=== PATIENT | female | born 1995 | race Two or more races ===

== ENCOUNTER 2024-12-07 10:56 | Outpatient (AMB) | payer MEDICAID, SELFPAY ==
[2024-12-07 11:20] VITALS: BP 125/75; PULSE 83; RESP 17; TEMP 36.6; O2SAT 98; BMI 23.6
--- NOTE | 2024-12-07 11:20 | OBCLNT_ITS ---
Vital Signs 12/07/24 11:20 Height 1.55 m Height Method Measured Weight 56.699 kg Weight Measurement Method Standing Scale BMI 23.6 BP 125/75 Blood Pressure Source Automatic Cuff Blood Pressure Location Right Upper Arm Position Sitting Respiration 17 Pulse 83 Pulse Source Monitor Temp 97.8 F Temp Source Temporal Artery Scan Pulse Oximetry (%) 98 Oxygen Delivery Method Room Air Allergies/Home Meds Allergies & Medications Allergies No Known Allergies Allergy (Verified 12/07/24 11:21) Medication Reconciliation vit,calcium 27-ferrous fum 60 mg iron-folic acid 1 mg tablet (Trinatal Rx 1) 1 tab PO QDAY #60 tabs 10/12/20 [Rx Confirmed 12/07/24] Intake Visit Data Collection New Patient or Established: New Patient not seen in past 3 years at [facility] (considered New) Reason for Visit:: OBI Consent obtained for Telemed Visit: No Seen by Clinical Staff ONLY (RN/MA): No Automatic Machine Attendant Required: No Do You Feel Safe at Home: Yes Authorities Contacted: N/A PCP or OBGYN visit in last 3 months: No Hx Now: Yes Are you currently on any form of Control: No Last menstrual period: 09/13/24 Pain Present Currently: No Pain Scale Used: Pineda-Sandoval/Numerical Pain scale:: 0 Smoking Status Smoking Status: Never smoker Questionnaires Covid-19 Vaccine Questionnaire Has patient been vacinated for Covid-19 Have you been vacinated for Covid-19: No PHQ-9 PHQ-2 Over the last 2 weeks, how often have you been bothered by any of the following problems? 1. Little interest or pleasure in doing things: not at all 2. Feeling down, depressed, or hopeless: not at all Total score: 0 PHQ-9 3. Trouble falling or staying asleep, or sleeping too much: Not at all 4. Feeling tired or having little energy: Not at all 5. Poor appetite or overeating: Not at all 6. Feeling bad about yourself - or that you are a failure or have let yourself or your family down: Not at all 7. Trouble concentrating on things, such as reading the newspaper or watching t elevision: Not at all 8. Moving or speaking so slowly that other people could have noticed? - Or the opposite - being so fidgety or restless that you have been moving around a lot more than usual: not at all 9. Thoughts that you would be better off or of hurting yourself in some way: Not at all Total score: 0 If you checked off any problems, how difficult have these problems made it for you to do your work, take care of things at home, or get along with other people?: not difficult at all Source: Developed by Drs. Álvaro Law, Soraida Llanes, Ezio Coughlin and colleagues, with an educational ashli from [employer]. Social History Living Situation History Lives With: Family Housing: House Tobacco History Smoking Status: Never smoker Alcohol History Alcohol Intake Frequency: holidays/special occasions only Domestic Abuse History Do You Feel Safe at Home: Yes History of Present Illness HPI Narrative Patient is a at 9 weeks and 4 days gestation by ultrasound, presenting for initial care. She reports her last menstrual period was on September 14, 2019, but mentions a 2-day period in early September that she initially didn't c onsider a real period. Her estimated due date is July 08, 2025. She states she is feeling good overall but experiences morning sickness that passes quickly. She is able to keep food down despite the nausea. The patient expresses concern about a family history of scoliosis, specifically mentioning her older sister's diagnosis. She is interested in screening for this condition in her baby. 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 Medical History Past Medical History: No Hx Neurological Disorders, No Hx Breast Cancer, Yes Hx Cardiac Disorders (HTN PREV PREG), No Hx Cancer, Yes Hx Blood Disorders, Yes Hx Anemia, No Hx Gastrointestinal Disorders, No Hx Renal Disease, No Hx Diabetes Mellitus Type 1 and No Hx Diabetes Mellitus Type 2 OB Initial Visit OB Flowsheet OB Flowsheet Initial Weight: Not Recorded Date -?-?-?-?-?-?-?-?-?-?-?-?- EGA Weight BP Alb Glu CTX Pres Fundal ht FHR Mov Dilation Station Effacement Hx Notes Visit Note 12/07/24 -?-?-?-?-?-?-?-?-?-?-?-?- 9w 4d 56.699 kg 125/75 at 9 weeks and 4 days gestation by ultrasound, presenting for initial care. She states she is feeling good overall b ut experiences morning sickness that passes quickly. She is able to keep food down despite the nausea. - Order comprehensive labs including genetic testing for Down syndrome screening - Schedule detailed ultrasound at [facility] for placenta screening and 45-point anatomy survey at 20 weeks gestation - Continue vitamins - Plan for repeat at term due to history of 3 prior C-sections - [facility] Menstrual History Menstrual reliability: definite Flow: normal Menstrual regularity: regular Monthly: Yes Age at menarche: 17 On control pills at conception: No Date of positive home test: 10/09/24 OB History : 4 Para: 3 Hx # Pregnancies: 1 Hx Total # of Abortions (Spontaneous & Elective): 0 # of Living Children: 3 Infection History & Risk Evaluation History of STDs: chlamydia HIV risk evaluation: low risk Hepatitis B risk evaluation: low risk Patient or partner has history of Genital Herpes: No Genetic Screening & History Genetic Screening/Teratology Counseling - Includes patient, baby's father, or anyone in either family with: 1. Patient's age 35 years or older as of estimated date of delivery: No 2. Thalassemia (North Korean, Lithuanian, Mediterranean, or Background); MCV less than 80: No 3. Neural Tube Defect (Meningomyelocele, Spina Bifida, or Anencephaly): No 4. Congenital Heart Defect: No 5. Down Syndrome: No 6. Mazin-Sachs (Ashkenazi Baptist, Cajun, [place]ian [place]): No 7. Wei Disease (Ashkenazi Baptist): No 8. Familial Dysautonomia (Ashkenazi Baptist): No 9. Sickle Cell Disease or Trait (): No 10. Hemophilia or other blood disorders: No 11. Muscular Dystrophy: No 12. Cystic Fibrosis: No 13. Maritza's Chorea: No 14. Mental Retardation/Autism: No 15. Other inherited genetic or chromosomal disorder: No 16. Maternal Metabolic Disorder (EG,TYPE 1 Diabetes, PKU): No 17. Patient or baby's father had a child with defects not listed above: No 18. Recurrent loss or a stillbirth: No 19. Medications (including supplements, vitamins, herbs or otc drugs)/illicit/recreational drugs/alcohol since last menstrual period: No 20. Any other: No Infection History 1. Live with someone with TB or exposed to TB: No 2. Rash or viral illness since last menstrual period: No 3. Hepatitis B,C: No 4. History of STD: chlamydia Other (see comments) Source: [employer] Office Procedures OB Clinic LOC & Office Proc's Nursing/Assessment Patient Status: Established Patient OB Clinic Nursing Assessment: Medication Reconciliation, Update PMH in EMR and Vital Signs OB Clinic Coordination of Care: Complex Care and Chronic Disease 1-5, Consent,records obtained, informed consent, Education Simp Pt/Fam, 4+ Authorizations needed, Lab and Imaging orders and Results/Orders obtained Special Needs: Heart tones Established Patient Charge Established Patient Point Assignment: 150 Established Patient Point Charge: EP Level 4 (120-155) Post Follow-up Visit Post Follow up Visit: Yes Results Urine HCG Urine HCG Positive Last Edit by Ada Oakes MA on 12/07/24 11:25 Assessment & Plan Diagnosis / Problem List (1) Uterine size date discrepancy: Status: Acute (2) History of delivery, antepartum: Status: Acute (3) Supervision of high risk , unspecified, third trimester: Status: Acute
== END 2024-12-07 11:59 | disposition home or self-care (01) ==
LOC: HODSOBC 10:56
PROVIDERS: Supervising Provider Obstetrics & Gynecology; Visit Provider Obstetrics & Gynecology
DX: O09.891 Supervision of other high risk pregnancies, first trimester (principal); O26.841 Uterine size-date discrepancy, first trimester; O09.291 Supervision of pregnancy with other poor reproductive or obstetric history, first trimester; O34.219 Maternal care for unspecified type scar from previous cesarean delivery; Z3A.09 9 weeks gestation of pregnancy
CPT/HCPCS: 59430; 99214; G0463

== ENCOUNTER → 2025-01-03 | Outpatient (CLI) | payer MEDICAID, SELFPAY ==
--- NOTE | 2025-01-03 15:19 | XR_ITS ---
Examination: Complete OB ultrasound, less than 14 weeks, transabdominal Date and time of exam: January 03, 2025, 1523 hours INDICATIONS: The size and dates discrepancy Technique: Obstetrical ultrasound images less than 14 weeks performed via transabdominal imaging Findings: A normal shaped single intrauterine gestation is present in the uterus. CRL 6.7 cm corresponds to 13 weeks 0 day gestational age Cardiac motion 140 BPM Ultrasonographic survey of visible and placental structures unremarkable. Amniotic fluid volume appears appropriate for this estimated gestational age. Right ovary 3.2 cm arterial flow. Left ovary 2.3 cm arterial flow IMPRESSION: Viable intrauterine gestation 13 weeks 0 days.
== END | disposition home or self-care (01) ==
LOC: CDIM 14:58
PROVIDERS: Referring Provider Obstetrics & Gynecology; Visit Provider Obstetrics & Gynecology
DX: O26.849 Uterine size-date discrepancy, unspecified trimester (principal); Z3A.13 13 weeks gestation of pregnancy
CPT/HCPCS: 76801

== ENCOUNTER 2025-01-24 08:32 | Outpatient (AMB) | payer MEDICAID, SELFPAY ==
[2025-01-24 08:40] VITALS: BP 116/71; PULSE 88; RESP 16; TEMP 36.2; O2SAT 98; BMI 24.7
--- NOTE | 2025-01-24 08:40 | OBCLNT_ITS ---
Vital Signs 01/24/25 08:40 Height 1.55 m Height Method Stated Weight 59.477 kg Weight Measurement Method Standing Scale BMI 24.7 BP 116/71 Blood Pressure Source Automatic Cuff Blood Pressure Location Left Upper Arm Position Sitting Respiration 16 Pulse 88 Pulse Source Monitor Temp 97.2 F Temp Source Oral Pulse Oximetry (%) 98 Oxygen Delivery Method Room Air Allergies/Home Meds Allergies & Medications Allergies No Known Allergies Allergy (Verified 01/24/25 08:41) Medication Reconciliation vit,calcium 27-ferrous fum 60 mg iron-folic acid 1 mg tablet (Trinatal Rx 1) 1 tab PO QDAY #60 tabs 10/12/20 [Rx Confirmed 01/24/25] Intake Visit Data Collection New Patient or Established: Established Patient (seen at [facility] within 3 years) Reason for Visit:: OBC Seen by Clinical Staff ONLY (RN/MA): No Senior Instructional Designer Required: No Do You Feel Safe at Home: Yes Authorities Contacted: N/A PCP or OBGYN visit in last 3 months: Yes Hx Now: Yes Are you currently on any form of Control: No Pain Present Currently: No Pain Scale Used: Pineda-Sandoval/Numerical Pain scale:: 0 Smoking Status Smoking Status: Never smoker Questionnaires Covid-19 Vaccine Questionnaire Has patient been vacinated for Covid-19 Have you been vacinated for Covid-19: No PHQ-9 PHQ-2 Over the last 2 weeks, how often have you been bothered by any of the following problems? 1. Little interest or pleasure in doing things: not at all 2. Feeling down, depressed, or hopeless: not at all Total score: 0 PHQ-9 3. Trouble falling or staying asleep, or sleeping too much: Not at all 4. Feeling tired or having little energy: Not at all 5. Poor appetite or overeating: Not at all 6. Feeling bad about yourself - or that you are a failure or have let yourself or your family down: Not at all 7. Trouble concentrating on things, such as reading the newspaper or watching television: Not at all 8. Moving or speaking so slowly that other people could have noticed? - Or the opposite - being so fidgety or restless that you have been moving around a lot more than usual: not at all 9. Thoughts that you would be better off or of hurting yourself in some way: Not at all Total score: 0 If you checked off any problems, how difficult have these problems made it for you to do your work, take care of things at home, or get along with other people?: not difficult at all Source: Developed by Drs. Álvaro Law, Soraida Llanes, Ezio Coughlin and colleagues, with an educational ashli from [employer]. 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 Past Medical History: No Hx Neurological Disorders, No Hx Breast Cancer, Yes Hx Cardiac Disorders (HTN PREV PREG), No Hx Cancer, Yes Hx Blood Disorders, Yes Hx Anemia, No Hx Gastrointestinal Disorders, No Hx Renal Disease, No Hx Diabetes Mellitus Type 1 and No Hx Diabetes Mellitus Type 2 Care OB Visit Log OB Flowsheet Initial Weight: Not Recorded Date -?-?-?-?-?-?-?-?-?-?-?-?- EGA Weight BP Alb Glu CTX Pres Fundal ht FHR Mov Dilation Station Effacement Hx Notes Visit Note 12/07/24 -?-?-?-?-?-?-?-?-?-?-?-?- 9w 4d 56.699 kg 125/75 at 9 weeks and 4 days gestation by ultrasound, presenting for initial care. She states she is feeling good overall b ut experiences morning sickness that passes quickly. She is able to keep food down despite the nausea. - Order comprehensive labs including genetic testing for Down syndrome screening - Schedule detailed ultrasound at [facility] for placenta screening and 45-point anatomy survey at 20 weeks gestation - Continue vitamins - Plan for repeat at term due to history of 3 prior C-sections - [facility] -?-?-?-?-?-?-?-?-?-?-?-?- 16w 3d 59.477 kg 116/71 absent unknown 162 active Patient has a history of 3 prior deliveries. Denies ACOSTA, VC, and epigastric pain. - She reports feeling overall well pregn sundar-magaña with typical morning sickness symptoms. - She experiences occasional pinches whe n lying on her side but describes these as not annoying or bothersome. - She denies cramping or spotting. - She reports early waking and feeling a nxious but no other concerning symptoms. - AFP test to be completed - Awaiting MFM ultrasound at [facility] scheduled around 20 weeks gestation - Patient will be contacted within 2 wee ks prior to ultrasound appointment - MFM ultrasound will include placental assessment due to prior scars and complete anatomy screen DARIAN Calculator Estimated Delivery Date Method Current WG Current Estimate 07/08/25 Ultrasound #1 16w 3d Other Estimates 06/20/25 LMP (Uncertain) 19w 0d Office Procedures OBC Clinic LOC & Office Proc's Nursing/Assessment Patient Status: Established Patient OB Clinic Nursing Assessment: Medication Reconciliation, Update PMH in EMR and Vital Signs OB Clinic Coordination of Care: Education Complex Pt/Fam, Consent,records ob tained, informed consent, Lab and Imaging orders, Results/Orders obtained and Staff clarify orders Special Needs: Heart tones Established Patient Charge Established Patient Point Assignment: 115 Established Patient Point Charge: EP Level 3 (80-115) Assessment & Plan Diagnosis / Problem List (1) Supervision of high risk , unspecified, third trimester: Status: Acute (2) Uterine size date discrepancy: Status: Acute Plan Problem List - , 16 weeks gestation - History of 3 sections - Morning sickness - Family history of scoliosis Assessment 16-week intrauterine in a 4 para 3 patient with history of 3 prior sections. Patient reports typical symptoms including morning sickness and occasional positional discomfort with lateral positioning. No concerning symptoms including cramping or spotting. heart rate is 162 bpm, which is within normal limits. Family history significant for scoliosis. Maternal- medicine ultrasound pending at approximately 20 weeks gestation to evaluate placental location given prior scar history and perform an atomical screening. Plan - AFP test to be completed - Awaiting MFM ultrasound at [facility] scheduled around 20 weeks gestation - Patient will be contacted within 2 weeks prior to ultrasound appointment - MFM ultrasound will include placental assessment due to prior scars and complete anatomy screen
== END 2025-01-24 09:19 | disposition home or self-care (01) ==
LOC: HODSOBC 08:32
PROVIDERS: Supervising Provider Obstetrics & Gynecology; Visit Provider Obstetrics & Gynecology
DX: O09.892 Supervision of other high risk pregnancies, second trimester (principal); O26.842 Uterine size-date discrepancy, second trimester; O09.292 Supervision of pregnancy with other poor reproductive or obstetric history, second trimester; O34.219 Maternal care for unspecified type scar from previous cesarean delivery; Z3A.16 16 weeks gestation of pregnancy
CPT/HCPCS: 99213; G0463

== ENCOUNTER 2025-02-21 08:38 | Outpatient (AMB) | payer MEDICAID, SELFPAY ==
--- NOTE | 2025-02-21 08:46 | AMB.OBVISIT ---
Vital Signs 02/21/25 08:52 Height 1.57 m Height Method Stated Weight 60.951 kg Weight Measurement Method Standing Scale BMI 24.5 BP 110/71 Blood Pressure Source Automatic Cuff Blood Pressure Location Left Upper Arm Position Sitting Respiration 14 Pulse 68 Pulse Source Monitor Temp 97.7 F Temp Source Oral Pulse Oximetry (%) 98 Oxygen Delivery Method Room Air Allergies/Home Meds Allergies & Medications Allergies No Known Allergies Allergy (Verified 02/21/25 08:53) Medication Reconciliation vit,calcium 27-ferrous fum 60 mg iron-folic acid 1 mg tablet (Trinatal Rx 1) 1 tab PO QDAY #60 tabs 10/12/20 [Rx Confirmed 02/21/25] cephalexin 500 mg capsule 500 mg PO QID 7 days #28 caps 02/21/25 [Rx] clotrimazole 1 % vaginal cream (Gyne-Lotrimin 7) 1 appful vaginal QHS 7 days #45 grams 02/21/25 [Rx] Intake Visit Data Collection New Patient or Established: Established Patient (seen at [facility] within 3 years) Reason for Visit:: CARE Seen by Clinical Staff ONLY (RN/MA): No Body Cleaner Required: No Do You Feel Safe at Home: Yes Authorities Contacted: N/A PCP or OBGYN visit in last 3 months: Yes Hx Now: Yes Are you currently on any form of Control: No Pain Present Currently: No Pain Scale Used: Pineda-Sandoval/Numerical Pain scale:: 0 Smoking Status Smoking Status: Never smoker Immunizations Flu Vaccine in the Last 12 Months: No Flu Vaccine Exclusion Criteria: Refused by Patient Questionnaires Covid-19 Vaccine Questionnaire Has patient been vacinated for Covid-19 Have you been vacinated for Covid-19: No PHQ-9 PHQ-2 Over the last 2 weeks, how often have you been bothered by any of the following problems? 1. Little interest or pleasure in doing things: not at all 2. Feeling down, depressed, or hopeless: not at all Total score: 0 PHQ-9 3. Trouble falling or staying asleep, or sleeping too much: Not at all 4. Feeling tired or having little energy: Not at all 5. Poor appetite or overeating: Not at all 6. Feeling bad about yourself - or that you are a failure or have let yourself or your family down: Not at all 7. Trouble concentrating on things, such as reading the newspaper or watching television: Not at all 8. Moving or speaking so slowly that other people could have noticed? - Or the opposite - being so fidgety or restless that you have been moving around a lot more than usual: not at all 9. Thoughts that you would be better off or of hurting yourself in some way: Not at all Total score: 0 Source: Developed by Drs. Álvaro Law, Soraida Llanes, Ezio Coughlin and colleagues, with an educational ashli from [employer]. 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 She states she is feeling good overall but experiences morning sickness that passes quickly. She is able to keep food down despite the nausea. - Order comprehensive labs including genetic testing for Down syndrome screening - Schedule detailed ultrasound at [facility] for placenta screening and 45-point anatomy survey at 20 weeks gestation - Continue vitamins - Plan for repeat at term due to history of 3 prior C-sections - Routine care to be provided throughout 01/24/25 <del>?</del> 16w 3d 59.477 kg 116/71 absent unknown 162 active Patient has a history of 3 prior deliveries. Denies ACOSTA, VC, and epigastric pain. - She reports feeling overall well -magaña with typical morning sickness symptoms. - She experiences occasional pinches when lying on her side but describes these as not annoying or bothersome. - She denies cramping or spotting. - She reports early waking and feeling anxious but no other concerning symptoms. - AFP test to be completed - Awaiting MFM ultrasound at [place] ([facility]) scheduled around 20 weeks gestation - Patient will be contacted within 2 weeks prior to ultrasound appointment - MFM ultrasound will include placental assessment due to prior scars and complete anatomy screen 02/21/25 <del>?</del> 20w 3d 60.951 kg 110/71 absent unknown 138 active - She reports improvement in nausea, describing it as just average morning sickness. - She is experiencing restless legs, which she initially attributed to coffee consumption. - She drinks approximately one medium-sized coffee per day. - She has cut out caffeine to see if symptoms improve. - She reports vaginal discomfort with burning sensation and frequent urination. - She describes a habit of getting up frequently to empty small amounts of urine. - She reports cottage cheese-like vaginal discharge consistent with yeast infection symptoms. - She experiences burning with urination and sensation of incomplete bladder emptying. - She felt movement yesterday. - She has a scheduled ultrasound appointment in March at [facility] or [place]. - Prescribe prescription form of Oxistat (cream) for 7 days for yeast infection - Prescribe antibiotic tablet for 5 days for suspected UTI - Start magnesium glycinate supplement [id number] for restless legs - [facility] next appointment (around 24 weeks gestation) - Follow up in 4 weeks DARIAN Calculator Estimated Delivery Date Method Current WG Current Estimate 07/08/25 Ultrasound #1 20w 3d Other Estimates 06/20/25 LMP (Uncertain) 23w 0d Office Procedures [facility] Clinic LOC & Office Proc's Nursing/Assessment Patient Status: Established Patient OB Clinic Nursing Assessment: Medication Reconciliation, Update PMH in EMR and Vital Signs OB Clinic Coordination of Care: Complex Care and Chronic Disease 1-5, Consent,records obtained, informed consent, Education Simp Pt/Fam, 1 Ins Authorization, Lab and Imaging orders, Results/Orders obtained and Staff clarify orders Special Needs: Heart tones Established Patient Charge Established Patient Point Assignment: 150 Established Patient Point Charge: EP Level 4 (120-155) Assessment & Plan Diagnosis / Problem List (1) UTI (urinary tract infection): Status: Acute (2) Acute vaginitis: Status: Acute (3) Uterine size date discrepancy: Status: Acute (4) Anemia affecting : Status: Acute Plan Problem List - Restless legs syndrome - Vulvovaginal candidiasis - Urinary tract infection Assessment The patient is a 20-week 3-day 4 para 3 presenting with symptoms suggestive of both urinary tract infection and vaginal yeast infection, reporting urinary frequency, burning sensation, incomplete bladder emptying, and cottage cheese-like vaginal discharge. She also reports restless leg symptoms and has experienced movement. heart rate is normal at 136-138 bpm. Morning sickness symptoms are described as average and improving. Plan - Prescribe prescription form of Oxistat (cream) for 7 days for yeast infection - Prescribe antibiotic tablet for 5 days for suspected UTI - Start magnesium glycinate supplement [id number] for restless legs - Obtain glucose screening test at [facility] 2-3 days before next appointment (around 24 weeks gestation) - Follow up in 4 weeks 1. Progress Reviewed gestational age (20 weeks 3 days), growth, and heart rate (136-138 bpm, normal). Planned frequent visits (every 2 weeks until 36 weeks, then weekly). 2. Instructed patient to monitor movements and report decreases immediately. 3. Testing Counseled on routine third-trimester labs per guidelines including glucose screening test at 24 weeks. Discussed potential need for ultrasound or monitoring based on risk factors. 4. Preeclampsia Precaution Educated on preeclampsia signs: severe headache, vision changes, right upper quadrant pain, sudden swelling. Advised urgent reporting of symptoms and discussed blood pressure monitoring if high risk. 5. Labor Precautions Reviewed labor signs: regular contractions, pelvic pressure, back pain, bleeding, or fluid leakage. Instructed to seek immediate care for these symptoms. 6. Lifestyle and Delivery Preparation Reinforced vitamins, nutrition, and safe activity including caffeine limitation to 100-150mg daily. Discussed plan, pain management, and . Advised on labor preparation (e.g., hospital bag) and expectations. 7. Psychosocial Support Assessed emotional well-being and offered resources for mental health or parenting support.
[2025-02-21 08:52] VITALS: BP 110/71; PULSE 68; RESP 14; TEMP 36.5; O2SAT 98; BMI 24.5
== END 2025-02-21 09:34 | disposition home or self-care (01) ==
LOC: HODSOBC 08:38
PROVIDERS: Supervising Provider Obstetrics & Gynecology; Visit Provider Obstetrics & Gynecology
DX: O09.892 Supervision of other high risk pregnancies, second trimester (principal); O23.42 Unspecified infection of urinary tract in pregnancy, second trimester; O98.812 Other maternal infectious and parasitic diseases complicating pregnancy, second trimester; B37.31 Acute candidiasis of vulva and vagina; O26.842 Uterine size-date discrepancy, second trimester; O99.012 Anemia complicating pregnancy, second trimester; O99.352 Diseases of the nervous system complicating pregnancy, second trimester; G25.81 Restless legs syndrome; Z3A.20 20 weeks gestation of pregnancy
CPT/HCPCS: 99214; G0463

== ENCOUNTER → 2025-03-01 | Outpatient (CLI) | payer MEDICAID, SELFPAY ==
--- NOTE | 2025-03-01 14:46 | XR_ITS ---
Examination: Complete OB ultrasound greater than 14 weeks Date and time of exam: March 01, 2025, 1514 hours INDICATIONS: Size dates discrepancy diagnosis Findings: Viable intrauterine single fetus with single amniotic sac presentation cephalic Cardiac motion 148 bpm Placenta fundal grade 1 Umbilical cord insertion 3 vessel seen Amniotic fluid index 17.9 cm spine maternal right Cervix 4.0 cm Right ovary 1.7 cm arterial flow Left ovary obscured by bowel gas. Composite estimated gestational age based on BPD, head circumference, abdominal circumference, femur length is 21 weeks 0 days Estimated weight 406 g. Survey of intracranial anatomy, spinal anatomy, abdominal anatomy, four-chamber heart performed with no abnormalities identified. Impression: Viable intrauterine gestation in cephalic presentation.
== END | disposition home or self-care (01) ==
LOC: CDIM 14:04
PROVIDERS: Referring Provider Obstetrics & Gynecology; Visit Provider Obstetrics & Gynecology
DX: O26.849 Uterine size-date discrepancy, unspecified trimester (principal); Z3A.21 21 weeks gestation of pregnancy
CPT/HCPCS: 76805

== ENCOUNTER 2025-04-05 08:25 | Outpatient (AMB) | payer MEDICAID, SELFPAY ==
[2025-04-05 08:46] VITALS: BP 118/61; PULSE 92; RESP 18; TEMP 36.8; O2SAT 98; BMI 25.7
--- NOTE | 2025-04-05 08:46 | AMB.OBPNC ---
Vital Signs 04/05/25 08:46 Height 1.57 m Height Method Stated Weight 63.56 kg Weight Measurement Method Standing Scale BMI 25.7 BP 118/61 Blood Pressure Source Automatic Cuff Blood Pressure Location Left Upper Arm Position Sitting Respiration 18 Pulse 92 Pulse Source Monitor Temp 98.2 F Temp Source Oral Pulse Oximetry (%) 98 Oxygen Delivery Method Room Air Allergies/Home Meds Allergies & Medications Allergies No Known Allergies Allergy (Verified 04/05/25 08:47) Medication Reconciliation vit,calcium 27-ferrous fum 60 mg iron-folic acid 1 mg tablet (Trinatal Rx 1) 1 tab PO QDAY #60 tabs 10/12/20 [Rx Confirmed 04/05/25] Immunizations Immunizations Flu Vaccine in the Last 12 Months: No Flu Vaccine Exclusion Criteria: No Exclusion Criteria Care OB Visit Log OB Flowsheet Initial Weight: Not Recorded Date <del>?</del> EGA Weight BP Alb Glu CTX Pres Fundal ht FHR Mov Dilation Station Effacement Hx Notes Visit Note 12/07/24 <del>?</del> 9w 4d 56.699 kg 125/75 at 9 weeks and 4 days gestation by ultrasound, presenting for initial care. She states she is feeling good overall but experiences morning sickness that passes quickly. She is able to keep food down despite the nausea. - Order comprehensive labs including genetic testing for Down syndrome screening - Schedule detailed ultrasound at [facility] for placenta screening and 45-point anatomy survey at 20 weeks gestation - Continue vitamins - Plan for repeat at term due to history of 3 prior C-sections - Routine care to be provided throughout 01/24/25 <del>?</del> 16w 3d 59.477 kg 116/71 absent unknown 162 active Patient has a history of 3 prior deliveries. Denies ACOSTA, VC, and epigastric pain. - She reports feeling overall well -magaña with typical morning sickness symptoms. - She experiences occasional pinches when lying on her side but describes these as not annoying or bothersome. - She denies cramping or spotting. - She reports early waking and feeling anxious but no other concerning symptoms. - AFP test to be completed - Awaiting M ultrasound at [place] ([facility]) scheduled around 20 weeks gestation - Patient will be contacted within 2 weeks prior to ultrasound appointment - MFM ultrasound will include placental assessment due to prior scars and complete anatomy screen 02/21/25 <del>?</del> 20w 3d 60.951 kg 110/71 absent unknown 138 active - She reports improvement in nausea, describing it as just average morning sickness. - She is experiencing restless legs, which she initially attributed to coffee consumption. - She drinks approximately one medium-sized coffee per day. - She has cut out caffeine to see if symptoms improve. - She reports vaginal discomfort with burning sensation and frequent urination. - She describes a habit of getting up frequently to empty small amounts of urine. - She reports cottage cheese-like vaginal discharge consistent with yeast infection symptoms. - She experiences burning with urination and sensation of incomplete bladder emptying. - She felt movement yesterday. - She has a scheduled ultrasound appointment in March at [facility] or [place]. - Prescribe prescription form of Oxistat (cream) for 7 days for yeast infection - Prescribe antibiotic tablet for 5 days for suspected UTI - Start magnesium glycinate supplement [id number] for restless legs - [facility] next appointment (around 24 weeks gestation) - Follow up in 4 weeks 04/05/25 <del>?</del> 26w 4d 63.56 kg 118/61 absent unknown 145 active - She reports feeling well overall with no concerning symptoms. - She denies contractions, cramping, or leaking fluid. - Patient notes increased movement, which she describes as baby's been kicking a lot. - She reports no other concerns at this time. - Vascular ultrasound scheduled for today - Follow up in 4 days - Labs to be done at next visit - Transition to every 2 weeks visits after next appointment DARIAN Calculator Estimated Delivery Date Method Current WG Current Estimate 07/08/25 Ultrasound #1 26w 4d Other Estimates 06/20/25 LMP (Uncertain) 29w 1d Office Procedures OBC Clinic LOC & Office Proc's Nursing/Assessment Patient Status: Established Patient OB Clinic Nursing Assessment: Medication Reconciliation, Update PMH in EMR and Vital Signs OB Clinic Coordination of Care: Consent,records obtained, informed consent, Education Simp Pt/Fam, Lab and Imaging orders, Results/Orders obtained and Staff clarify orders Special Needs: Heart tones Established Patient Charge Established Patient Point Assignment: 110 Established Patient Point Charge: EP Level 3 (80-115) Assessment & Plan Diagnosis / Problem List (1) UTI (urinary tract infection): Status: Acute (2) Acute vaginitis: Status: Acute (3) Uterine size date discrepancy: Status: Acute Plan Assessment 26-week 4-day gestation in a 4, para 3 patient with history of one delivery. One-hour glucose tolerance test result of 64 is negative, ruling out gestational diabetes. Patient reports normal movement with increased kicking and denies contractions, cramping, or leaking fluid. Awaiting vascular ultrasound results for further evaluation of placental and anatomy. Plan - Vascular ultrasound scheduled for today - Follow up in 4 days - Labs to be done at next visit - Transition to every 2 weeks visits after next appointment 1. Progress Reviewed gestational age (26 weeks 4 days), growth, and heart rate (147 bpm - normal). Planned frequent visits (every 2 weeks until 36 weeks, then weekly). 2. Instructed patient to monitor movements and report decreases immediately. 3. Testing Counseled on routine third-trimester labs per guidelines (labs planned for next visit). Discussed potential need for ultrasound or monitoring based on risk factors (vascular ultrasound scheduled for today). 4. Preeclampsia Precaution Educated on preeclampsia signs: severe headache, vision changes, right upper quadrant pain, sudden swelling. Advised urgent reporting of symptoms and discussed blood pressure monitoring if high risk. 5. Labor Precautions Reviewed labor signs: regular contractions, pelvic pressure, back pain, bleeding, or fluid leakage. Instructed to seek immediate care for these symptoms. 6. Lifestyle and Delivery Preparation Reinforced vitamins, nutrition, and safe activity. Discussed plan, pain management, and . Advised on labor preparation (e.g., hospital bag) and expectations. 7. Psychosocial Support Assessed emotional well-being and offered resources for mental health or parenting support.
== END 2025-04-05 09:09 | disposition home or self-care (01) ==
LOC: HODSOBC 08:25
PROVIDERS: Supervising Provider Obstetrics & Gynecology; Visit Provider Obstetrics & Gynecology
DX: O09.892 Supervision of other high risk pregnancies, second trimester (principal); O23.42 Unspecified infection of urinary tract in pregnancy, second trimester; O23.592 Infection of other part of genital tract in pregnancy, second trimester; N76.0 Acute vaginitis; O26.842 Uterine size-date discrepancy, second trimester; Z3A.26 26 weeks gestation of pregnancy
CPT/HCPCS: 99213; G0463

== ENCOUNTER 2025-04-26 09:07 | Outpatient (AMB) | payer MEDICAID, SELFPAY ==
[2025-04-26 09:18] VITALS: BP 118/77; PULSE 82; RESP 18; TEMP 36.2; O2SAT 98; BMI 25.0
--- NOTE | 2025-04-26 09:18 | OBCLNT_ITS ---
Vital Signs 04/26/25 09:18 Height 1.57 m Height Method Stated Weight 61.802 kg Weight Measurement Method Standing Scale BMI 25.0 BP 118/77 Blood Pressure Source Automatic Cuff Blood Pressure Location Left Upper Arm Position Sitting Respiration 18 Pulse 82 Pulse Source Monitor Temp 97.2 F Temp Source Oral Pulse Oximetry (%) 98 Oxygen Delivery Method Room Air Allergies/Home Meds Allergies & Medications Allergies No Known Allergies Allergy (Verified 04/26/25 09:19) Medication Reconciliation vit,calcium 27-ferrous fum 60 mg iron-folic acid 1 mg tablet (Trinatal Rx 1) 1 tab PO QDAY #60 tabs 10/12/20 [Rx Confirmed 04/26/25] Immunizations Immunizations Flu Vaccine in the Last 12 Months: No Flu Vaccine Exclusion Criteria: Refused by Patient Care OB Visit Log OB Flowsheet Initial Weight: Not Recorded Date -?-?-?-?-?-?-?-?-?-?-?-?- EGA Weight BP Alb Glu CTX Pres Fundal ht FHR Mov Dilation Station Effacement Hx Notes Visit Note 12/07/24 -?-?-?-?-?-?-?-?-?-?-?-?- 9w 4d 56.699 kg 125/75 at 9 weeks and 4 days gestation by ultrasound, presenting for initial care. She states she is feeling good overall b ut experiences morning sickness that passes quickly. She is able to keep food down despite the nausea. - Order comprehensive labs including genetic testing for Down syndrome screening - Schedule detailed ultrasound at [facility] for placenta screening and 45-point anatomy survey at 20 weeks gestation - Continue vitamins - Plan for repeat at term due to history of 3 prior C-sections - Routine care [facility] be provided t [facility] 01/24/25 -?-?-?-?-?-?-?-?-?-?-?-?- 16w 3d 59.477 kg 116/71 absent unknown 162 active Patient has a history of 3 prior deliveries. Denies ACOSTA, VC, and epigastric pain. - She reports feeling overall well pregn sundar-magaña with typical morning sickness symptoms. - She experiences occasional pinches whe n lying on her side but describes these as not annoying or bothersome. - She denies cramping or spotting. - She reports early waking and feeling a nxious but no other concerning symptoms. - AFP test to be completed - Awaiting MFM ultrasound at [facility] ([facility]) scheduled around 20 weeks gestation - Patient will be contacted within 2 wee ks prior to ultrasound appointment - MFM ultrasound will include placental assessment due to prior scars and complete anatomy screen 02/21/25 -?-?-?-?-?-?-?-?-?-?-?-?- 20w 3d 60.951 kg 110/71 absent unknown 138 active - She reports improvement in nausea, describing it as just average morning sickness. - She is experiencing restless legs, whi ch she initially attributed to coffee consumption. - She drinks approximately one medium- sized coffee per day. - She has cut out caffeine to see if s ymptoms improve. - She reports vaginal discomfort with bu rning sensation and frequent urination. - She describes a habit of getting up frequently to empty small amounts of urine. - She reports cottage cheese-like vagi nal discharge consistent with yeast infection symptoms. - She experiences burning with urinati on and sensation of incomplete bladder emptying. - She felt movement yesterday. - She has a scheduled ultrasound appoint ment in March at [facility] or [facility]. - Prescribe pres cription form of Oxistat (cream) for 7 days for yeast infection - Prescribe antibiotic tablet for 5 days for suspected UTI - Start magnesium glycinate supplement o [id number] for restless legs - Obtain glucose screening test at [facility] 2-3 days before next appointment (around 24 weeks gestation) - Follow up in 4 weeks 04/05/25 -?-?-?-?-?-?-?-?-?-?-?-?- 26w 4d 63.56 kg 118/61 absent unknown 145 active - She reports feeling well overall with no concerning symptoms. - She denies contractions, cramping, or leaking fluid. - Patient notes increased movement , which she describes as baby's been kicking a lot. - She reports no other concerns at this time. - Vascular ultrasound scheduled for today - Follow up in 4 days - Labs to be done at next visit - Transition to every 2 weeks visits aft er next appointment 04/26/25 -?-?-?-?-?-?-?-?-?-?-?-?- 29w 4d 61.802 kg 118/77 absent unknown 155 active - She reports feeling good overall with no specific complaints. - Patient confirms baby is active with n ormal movement. - She had a recent ultrasound in [facility] which showed normal findings. - Patient notes they could not visuali ze the baby's face during the ultrasound because the baby was covering her head. - She has a follow-up ultrasound appoint ment scheduled for May 17. - Patient inquired about her exact due date for clarification. - Administer Tdap vaccination today - Complete routine laboratory work withi n the next couple of weeks: anemia check and syphilis screen - Schedule repeat section for M (one week prior to due date of July 11) - Schedule section booking in e may when June schedule becomes available - Follow-up appointment in 3 weeks after May 17 ultrasound appointment - Continue routine care with ne xt ultrasound scheduled for May 17 DARIAN Calculator Estimated Delivery Date Method Current WG Current Estimate 07/08/25 Ultrasound #1 29w 4d Other Estimates 06/20/25 LMP (Uncertain) 32w 1d Notes Visit Date: 04/26/25 Last Updated by: Raul Sanchez MD - Glucose tolerance test: Negative - Ultrasound (April 08): Single living fetus, gestational age 26 weeks 1 day corresponding to DARIAN July 11, 2025 by early ultrasound. Current growth parameters consistent with clinical date, composite age 25 weeks 5 days, EFW 908 grams (42nd percentile), ROSEMARY normal. Placenta posterior right lateral, no previa. Cervix 3.8 cm, no funneling. presentation cephalic. Detailed evaluation limited, however visualized structures appear normal. Office Procedures [facility] LOC & Office Proc's Nursing/Assessment Patient Status: Established Patient OB Clinic Nursing Assessment: Medication Reconciliation, Update PMH in EMR and Vital Signs OB Clinic Coordination of Care: Complex Care and Chronic Disease 1-5, Education Complex Pt/Fam, Consent,records obtained, informed consent, Lab and Imaging orders, Results/Orders obtained and Staff clarify orders Special Needs: Heart tones Established Patient Charge Established Patient Point Assignment: 140 Established Patient Point Charge: EP Level 4 (120-155) Assessment & Plan Diagnosis / Problem List (1) Uterine size date discrepancy: Status: Acute Plan Problem List - at 26 weeks gestation - History of delivery - History of sections Assessment at 26 weeks and 1 day gestation with history of prior delivery and sections. Recent ultrasound demonstrates single living fetus with appropriate growth parameters (EFW 908 grams, 42nd percentile), normal amniotic fluid volume, posterior right lateral placenta without previa, cervical length of 3.8 cm without funneling, and cephalic presentation. heart rate is nor mal at 164-165 bpm with reported active movement. Patient reports feeling well with negative glucose tolerance test. Due date established as July 11, 2025 based on early ultrasound dating. Plan - Administer Tdap vaccination today - Complete routine laboratory work within the next couple of weeks: anemia check and syphilis screen - Schedule repeat section for July 04 (one week prior to due date of July 11) - Schedule section booking in early May when June schedule becomes available - Follow-up appointment in 3 weeks after May 17 ultrasound appointment - Continue routine care with next ultrasound scheduled for May 17 1. Progress Reviewed gestational age at 26 weeks and 1 day, growth with EFW 908 grams at 42nd percentile, and heart rate of 164-165 bpm which is normal. Planned frequent visits with next appointment scheduled for 3 weeks follow-up after ultrasound on May 17. 2. Instructed patient to monitor movements and report decreases immediately. 3. Testing Counseled on routine third-trimester labs per guidelines including anemia check and syphilis screen to be completed within the next couple of weeks. Discussed ongoing ultrasound monitoring with next appointment scheduled for May 17. 4. Preeclampsia Precaution Educated on preeclampsia signs: severe headache, vision changes, right upper quadrant pain, sudden swelling. Advised urgent reporting of symptoms and discussed blood pressure monitoring if high risk. 5. Labor Precautions Reviewed labor signs: regular contractions, pelvic pressure, back pain, bleeding, or fluid leakage. Instructed to seek immediate care for these symptoms. 6. Lifestyle and Delivery Preparation Reinforced vitamins, nutrition, and safe activity. Discussed repeat section scheduled for July 04 (one week prior to due date of July 11) and expectations. 7. Psychosocial Support Assessed emotional well-being and offered resources for mental health or parenting support.
== END 2025-04-26 09:34 | disposition home or self-care (01) ==
PROVIDERS: Supervising Provider Obstetrics & Gynecology; Visit Provider Obstetrics & Gynecology
DX: O09.893 Supervision of other high risk pregnancies, third trimester (principal); O26.843 Uterine size-date discrepancy, third trimester; O09.293 Supervision of pregnancy with other poor reproductive or obstetric history, third trimester; O34.219 Maternal care for unspecified type scar from previous cesarean delivery; Z3A.29 29 weeks gestation of pregnancy; Z23 Encounter for immunization
CPT/HCPCS: 90471; 90715; 99214; G0463